=== PATIENT | female | born 1940 | race Two or more races ===

== ENCOUNTER 2018-08-08 14:44 | Emergency (ER) | payer MEDICARE, MEDICAID ==
[~2018-08-08] VITALS: Ht 170.2 cm; Wt 50.3 kg
--- NOTE | 2018-08-08 15:00 | NUR ---
PT SAMMARINESE SPEAKING WITH C/C OF GLF BETWEEN TWO CARS FOUND ON [address] BY PARAMEDICS PT ACCOMPANIED BY DAUGHTER. PARAMEDICS PLACED 20G PIV IN RIGHT AC AND GAVE 50 MCG [place]. PT HAS RIGHT HIP PAIN RIGHT LEG SHORTER THAN LEFT RIGHT LEG POSITIVE FOR CIRCULATION , MOTION AND SENSATION. PT ALERT WITH ORIENTATION X 4.
[2018-08-08] MEDS ORDERED: HYDROMORPHONE 1 MG/1 ML DISP.SYRIN ONE ×2 (15:51→17:56)
[2018-08-08] MEDS ORDERED: ONDANSETRON HCL/PF 4 MG/2 ML VIAL ONE ×3 (15:55→21:00)
[2018-08-08] MEDS: HYDROMORPHONE MDV 0.5 MG in IV D5W 50 ML IV PRN ×2 (15:58→18:31)
[2018-08-08] MEDS ORDERED: ONDANSETRON HCL/PF - ER 4 MG/2 ML VIAL IV ONE ×2 (16:00→18:00)
[2018-08-08 16:07] LABS: BASOPHILS % (AUTO) 0.3 % (0.0-2.0); EOSINOPHILS % (AUTO) 0.8 % (0.0-6.0); HEMATOCRIT 37 % (33-45); HEMOGLOBIN 12.7 g/dL (11.5-14.8); LYMPHOCYTES # (AUTO) 0.6 /CMM (0.8-4.8); LYMPHOCYTES % (AUTO) 10.5 % (20.0-44.0); MEAN CORPUSCULAR HGB CONC 35 g/dl (31.0-36.0); MEAN CORPUSCULAR VOLUME 89 fL (82-100); MONOCYTES # (AUTO) 0.2 /CMM (0.1-1.30); MONOCYTES % (AUTO) 3.3 % (2.0-12.0); NEUTROPHILS # (AUTO) 4.5 /CMM (1.8-8.9); NEUTROPHILS % (AUTO) 85.1 % (43.0-81.0); PLATELET COUNT (AUTO) 155 /CMM (150-450); RED BLOOD CELL COUNT(AUTO) 4.09 MIL/uL (4.0-5.2); WHITE BLOOD COUNT (AUTO) 5.3 K/uL (4.3-11.0)
[2018-08-08 16:20] LABS: ALBUMIN 3.7 g/dL (3.4-5.0); BILIRUBIN,DIRECT 0.1 mg/dL (0.0-0.2); CALCIUM, SERUM 9.7 mg/dL (8.5-10.1); CARBON DIOXIDE 29 mmol/L (21-32); CHLORIDE 103 mmol/L (98-107); CREATININE 0.8 mg/dL (0.6-1.3); GLUCOSE 158 mg/dL (74-106); POTASSIUM 3.8 mmol/L (3.5-5.1); SODIUM SERUM 139 mmol/L (136-145); UREA NITROGEN, BLOOD 16 mg/dL (7-18)
--- NOTE | 2018-08-08 16:23 | NUR ---
CALLED [facility] [phone]
[2018-08-08 16:42] LABS: ALANINE AMINOTRANSFERASE 22 U/L (12-78); ALKALINE PHOSPHATASE 57 U/L (46-116); ASPARTATE AMINOTRANSFERASE 16 U/L (15-37); BILIRUBIN,TOTAL 0.4 mg/dL (0.2-1.0)
[2018-08-08] MEDS ORDERED: HYDROMORPHONE INJ 0.5 MG/0.5 ML SYRINGE IV ONE (18:00)
--- NOTE | 2018-08-08 19:17 | NUR ---
Sitter at bedside.
--- NOTE | 2018-08-08 19:17 | NUR ---
REPORT REC'D FROM HELDER VARGAS FOR COMFORT
[2018-08-08] MEDS ORDERED: ONDANSETRON HCL/PF 4 MG/2 ML VIAL IV ONE (20:30)
[2018-08-08] MEDS ORDERED: MORPHINE SULFATE INJ 2 MG/ML DISP.SYRIN IV ONE (20:30)
--- NOTE | 2018-08-08 20:31 | NUR ---
verbal order for Dr. Samuels for Morphine 4mg & Zofran 4 mg IVP placed per his request.
--- NOTE | 2018-08-08 20:35 | NUR ---
Patient does not wish to proceed with medical care recommended by Dr. MENON. Patient given information related to possible complications, up to and including , which could occur as a result of leaving the hospital at this time. Patient verbalizes understanding of risks involved due to leaving against medical advice. Patient has signed AMA form and is in the chart.
[2018-08-08] MEDS ORDERED: MORPHINE SULFATE INJ 4 MG/ML DISP.SYRIN ONE (21:00)
--- NOTE | 2018-08-08 21:50 | NUR ---
Patient is resting comfortably in bed. NO PAIN. SITTER AT BEDSIDE. NAD.
--- NOTE | 2018-08-08 22:08 | NUR ---
Pt has ordered private ambulance to transport patient out. Patient AMA'd in stable condition. Written and verbal after care instructions given. Patient's daughter verbalizes understanding of instruction. Copy of Labs and Imaging given to patient's daughter. VSS.
[2018-08-08 22:15] VITALS: BP 135/69
--- NOTE | 2018-08-08 22:19 | NUR ---
Transport arrived. IV removed. Catheter intact and site benign. Pressure and 4x4 applied to site. No bleeding noted. Henry removed. Pt transported out. VSS.
[2018-08-12] MEDS: HYDROMORPHONE MDV 0.5 MG in IV D5W 50 ML IV PRN (06:39)
--- NOTE | 2018-08-12 06:40 | NUR ---
GAVE 0.5 MG DILAUDID WITH 4 MG ZOFRAN IV PUSH AND NOT BY IV DRIP
== END 2018-08-08 22:20 | disposition left against medical advice (07) ==
LOC: ER 14:46 → EDBD 14:46 → ER 22:20
DX: S72.141A Displaced intertrochanteric fracture of right femur, initial encounter for closed fracture (principal); I10 Essential (primary) hypertension; E11.9 Type 2 diabetes mellitus without complications; Z90.5 Acquired absence of kidney; W01.0XXA Fall on same level from slipping, tripping and stumbling without subsequent striking against object, initial encounter; Y93.01 Activity, walking, marching and hiking; Y92.89 Other specified places as the place of occurrence of the external cause; Y99.8 Other external cause status
CPT/HCPCS: 36415; 71045-TC; 73502; 80048-TC; 80076-TC; 84484-TC; 85025-TC; 85730-TC; J1170; J2270; J2405